=== PATIENT | male | born 1990 | race African-American/Black ===

== ENCOUNTER 2020-07-19 19:14 | Emergency (ER) | payer OTHER ==
[~2020-07-19] VITALS: Ht 172.7 cm; Wt 59.0 kg
[2020-07-19 19:20] VITALS: BP 135/82
[2020-07-19] MEDS ORDERED: IBUPROFEN 600 MG TABLET. PO ONE (19:30)
--- NOTE | 2020-07-19 20:00 | RAD ---
Exam: Left ankle 3 views. Left foot 3 views INDICATION: Kicked object, left ankle pain TECHNIQUE: Frontal, lateral and oblique views of the left foot and ankle Comparisons: None FINDINGS: Ankle: Bone mineralization is normal. No acute or healed fractures. Soft tissues are unremarkable. Joint spa lavelle are well-maintained. Foot: Bone mineralization is normal. No acute or healed fractures. Soft tissues are unremarkable. Joint spa lavelle are well-maintained. IMPRESSION: No acute osseous abnormality of the left ankle or left foot. Electronically signed by: Michael Tong MD (07/19/2020 7:57 PM) [facility]
--- NOTE | 2020-07-19 20:10 | PHYS DOC ---
Past History Past Medical History: No Pertinent History Past Surgical History: No Surgical History Alcohol Use: None Adult General Chief Complaint Chief Complaint: FOOT INJURY PAIN HPI HPI Patient is a 30-year-old male who presents with left foot pain, 6 out of 10, dull and achy in nature. States he was exercising and kicking the heavy bag when he injured it. States he is able to walk but it causes discomfort. States he did not take any medications for this. Denies any other injuries. Review of Systems Review of Systems Review of systems otherwise unremarkable except noted in HPI Current Medications Current Medications Current Medications Medications (Trade) Dose Ordered Sig/Reshma Start Time Stop Time Status Last Admin Dose Admin Ibuprofen (Motrin) 600 mg 1X ONCE 07/19/20 19:30 07/19/20 19:40 DC Allergies Allergies Allergies Coded Allergies Type Severity Reaction Last Updated Verified No Known Drug Allergies 07/19/20 No Physical Exam Physical Exam Constitutional: Well developed, well nourished, no acute distress, non-toxic appearance. [] Cardiovascular:Heart rate regular rhythm, no murmur [] Lungs & Thorax: Bilateral breath sounds clear to auscultation [] Skin: Warm, dry, no erythema, no rash. [] Back: No tenderness, no CVA tenderness. [] Extremities: Neurovascular exam intact. Tenderness on anterior portion of the foot with mild swelling but no obvious deformities or bruising. Range of motion intact. Patient able to walk. Neurologic: Alert and oriented X 3, normal motor function, normal sensory f unction, no focal deficits noted. [] Psychologic: Affect normal, judgement normal, mood normal. [] Current Patient Data Vital Signs Vital Signs Date Time Temp Pulse Resp B/P (MAP) Pulse Ox O2 Delivery O2 Flow Rate FiO2 07/19/20 19:20 99.3 103 16 135/82 (99) 100 EKG EKG [] Radiology/Procedures Radiology/Procedures []Exam: Left ankle 3 views. Left foot 3 views INDICATION: Kicked object, left ankle pain TECHNIQUE: Frontal, lateral and oblique views of the left foot and ankle Comparisons: None FINDINGS: Ankle: Bone mineralization is normal. No acute or healed fractures. Soft tissues are unremarkable. Joint spaces are well-maintained. Foot: Bone mineralization is normal. No acute or healed fractures. Soft tissues are unremarkable. Joint spaces are well-maintained. IMPRESSION: No acute osseous abnormality of the left ankle or left foot. Electronically signed by: Michael Tong MD (07/19/2020 7:57 PM) [facility] Heart Score C/O Chest Pain: No Risk Factors: Risk Factors: DM, Current or recent (<one month) smoker, HTN, HLP, family history of CAD, obesity. Risk Scores: Risk Factors: DM, Current or recent (<one month) smoker, HTN, HLP, family history of CAD, obesity. Course & Med Decision Making Course & Med Decision Making Patient is a 30-year-old male who presents with left foot pain after kicking a heavy bag Vital signs not concerning. Physical exam noted above. Given ice. Given oral pain medication. Gigi wrap. Ridging noted above with no acute osseous abnormalities. Discussed pain management at home with patient. Advised to follow-up with primary care physician as needed. Gave return precautions to the ED. Patient grateful, verbalized understanding and agreed with plan of discharge. [] Dragon Disclaimer Dragon Disclaimer This electronic medical record was generated, in whole or in part, using a voice recognition dictation system. Departure Departure: Impression: Primary Impression: Foot pain Disposition: HOME / SELF CARE / HOMELESS Condition: GOOD Referrals: PCP,NO (PCP) ALEXANDER GONZALES MD Patient Instructions: RICE - Routine Care for Injuries Additional Instructions: Thank you for coming into the emergency department today and allowing us to take care of you. You are given oral pain medications and ice in the emergency department. Here x-rays did not show any broken bones but that does not mean that she did not sprain your ankle and/or foot as discussed. Please continue to use Tylenol, ibuprofen and ice as discussed. Please follow-up with your primary care physician when you can to discuss your ED visit. Please come back to the ED with new or concerning symptoms as discussed. CARLIN ZAPIEN MD Jul 19, 2020 20:10
== END 2020-07-19 20:15 | disposition home or self-care (01) ==
LOC: ER 19:14
DX: M79.672 Pain in left foot (principal)
CPT/HCPCS: 73610; 73630; 99284